=== PATIENT | male | born 1990 | race Hispanic/Latino ===

== ENCOUNTER 2022-04-23 17:50 | Emergency (ER) | payer SELFPAY ==
[2022-04-23] MEDS ORDERED: Boostrix 0.5 ML (Tdap) VIAL (>/=7 yrs of age) ONE (18:54)
== END 2022-04-24 00:02 | disposition short-term general hospital (02) ==
LOC: MADERS 17:50
DX: S91.332A Puncture wound without foreign body, left foot, initial encounter (principal); F17.200 Nicotine dependence, unspecified, uncomplicated; Z23 Encounter for immunization; W45.0XXA Nail entering through skin, initial encounter
CPT/HCPCS: 90471; 90715